=== PATIENT | male | born 1995 | race Caucasian/White ===

== ENCOUNTER 2024-07-13 08:07 | Day surgery (SDC) | payer OTHER ==
[~2024-07-13] VITALS: Ht 175.3 cm; Wt 90.7 kg
[2024-07-13] MEDS: EPINEPHrine INJ 1 MG/ML 1ML AMP As Ordered ONE (07:33)
[2024-07-13] MEDS: LIDOCAINE W/EPINEPHRINE 1% 20ML VIAL As Ordered ONE (07:33)
[~2024-07-13 08:07] MED LIST: HYDROmorphone HCL 2MG/ML 1ML VIAL As Ordered ONE; LIDOCAINE 2% 100MG/5ML SDV (FOR ANES.) As Ordered ONE; MIDAZOLAM INJ 2MG/2ML VIAL As Ordered ONE; ONDANSETRON 4MG 2ML VIAL As Ordered ONE; ROCURONIUM BROMIDE 50MG/5ML VIAL As Ordered ONE; SUGAMMADEX SODIUM 500 MG/5 ML VIAL (BRIDION) As Ordered ONE; fentaNYL 100 MCG/2 ML INJECTION As Ordered ONE; propofoL 200 MG/20 ML VIAL As Ordered ONE
[2024-07-13] MEDS: LR 1,000 ML IV SCH (08:33)
[2024-07-13] MEDS: METHYLENE BLUE 0.5% (5MG/ML) 10 ML AMP (PROVAYBLUE) As Ordered ONE (08:54)
[2024-07-13] MEDS: EPINEPHrine 1MG/ML INJ 30ML MD-VIAL As Ordered ONE (08:54)
[2024-07-13] MEDS: SODIUM CHLORIDE 0.9% NASAL GEL 15GM (AYR) As Ordered ONE (09:31)
[2024-07-13] MEDS: OXYMETAZOLINE 0.05% NASAL SPRAY As Ordered ONE (09:31)
[2024-07-13] MEDS ORDERED: fentaNYL 100 MCG/2 ML INJECTION IV PRN (09:40)
[2024-07-13] MEDS ORDERED: HYDROMORPHONE HCL 0.5 MG/ 0.5 ML SYRINGE IV PRN (09:40)
[2024-07-13] MEDS ORDERED: NS (Normal Saline) 0.9% 1,000 ML IV SCH (09:40)
[2024-07-13] MEDS: ONDANSETRON 4MG 2ML VIAL IV PRN (10:07)
[2024-07-13] MEDS: oxyCODONE 5MG TAB PO PRN (10:08)
[2024-07-13 10:40] VITALS: BP 137/68; TEMP 97.6; O2SAT 98
== END 2024-07-13 11:39 | disposition home or self-care (01) ==
LOC: M SDC 08:07
PROVIDERS: ATTEND Otolaryngology
DX: J34.2 Deviated nasal septum (principal); R09.81 Nasal congestion; Z79.899 Other long term (current) drug therapy; J31.0 Chronic rhinitis
CPT/HCPCS: 30520; 88300; J0171; J1100; J2250; J2405; J3010; Q9968